=== PATIENT | female | born 1995 | race Caucasian/White ===

== ENCOUNTER 2019-10-24 18:54 | Emergency (ER) | payer MEDICAID, OTHER ==
--- NOTE | 2019-10-24 19:35 | EDM.PDOC ---
ED HPI GENERAL MEDICAL PROBLEM - General Chief Complaint: General Stated Complaint: POSSIBLE ETOPIC Time Seen by Provider: 10/24/19 19:09 Source of Information: Reports: Patient History Limitations: Reports: No Limitations - History of Present Illness INITIAL COMMENTS - FREE TEXT/NARRATIVE: Mrs. Escalera is a very pleasant 24-year-old woman with a past gynecologic history of 2 previous pregnancies, status post 2 sections, who now presents to the ED stating that she has been experiencing cramps felt across her lower abdomen/pelvis on and off for the past 6 days. The discomfort is primarily felt when her bladder is full, although has also been felt when her bladder has not been all that fall. She denies dysuria, urinary frequency, or urgency. The pain remains in her lower abdomen and does not radiate. She took 3 home tests this past , 10/22/2019, with all of them returning positive (she is now ). Her LMP was 09/29/2019. She has not had any vaginal bleeding since the end of her last period. No prior similar symptoms. The patient states that she has not taken any [id number] or home remedies to treat her symptoms. Here in the ED, she is found to be hemodynamically stable, afebrile, saturating 99% on room air. Other than the lower abdominal cramps, the patient denies recent fever, chills, sore throat, ear pain, nasal or sinus congestion, cough, dyspnea, chest pain, palpitations, nausea, vomiting, constipation, diarrhea, urinary symptoms, recent weight gain or weight loss, recent bloody bowel movements or black bowel movements, recent joint aches, headaches, or rashes. The patient is visiting from [place]. - Related Data Allergies Allergy/AdvReac Type Severity Reaction Status Date / Time No Known Allergies Allergy Verified 10/24/19 19:06 Home Meds: Home Meds FLUoxetine [PROzac] 40 mg PO DAILY 10/24/19 [History] Metoprolol Tartrate 25 mg PO BID 10/24/19 [History] Past Medical History : 3 Para: 2 Psychiatric History: Reports: Anxiety, Depression - Past Surgical History HEENT Surgical History: Reports: Myringotomy w Tube(s) (bilateral) GI Surgical History: Reports: Cholecystectomy (Mar 2018) Female Surgical History: Reports: Section (x 2) Social & Family History - Tobacco Use Smoking Status *Q: Never Smoker - Caffeine Use Caffeine Use: Reports: Soda - Alcohol Use Alcohol Use History: Yes Alcohol Use Frequency: Socially - Recreational Drug Use Recreational Drug Use: No - Living Situation & Occupation Living situation: Reports: , with Spouse, with Family (2 kids) Occupation: Unemployed ED ROS GENERAL - Review of Systems Review Of Systems: Comprehensive ROS is negative, except as noted in HPI. ED EXAM, RENAL/ - Physical Exam Exam: See Below Exam Limited By: No Limitations General Appearance: Alert, WD/WN, No Apparent Distress Eye Exam: Bilateral Eye: EOMI, Normal Inspection Ears: Normal External Exam, Hearing Grossly Normal Nose: Normal Inspection Throat/Mouth: Normal Inspection, Normal Lips, Normal Voice, No Airway Compromise Head: Atraumatic, Normocephalic Neck: Normal Inspection, Full Range of Motion Respiratory/Chest: No Respiratory Distress, Lungs Clear, Normal Breath Sounds, No Accessory Muscle Use Cardiovascular: Normal Peripheral Pulses, Regular Rate, Rhythm, No Edema, No Gallop, No JVD, No Murmur, No Rub GI/Abdominal: Normal Bowel Sounds, Soft, No Organomegaly, No Distention, No Abnormal Bruit, No Mass, Tender (Very mild, but reproducible, suprapubically only. No tenderness elsewhere, including either side of the pelvis.) (Female) Exam: Deferred Rectal (Female) Exam: Deferred Back Exam: Normal Inspection, Full Range of Motion. No: CVA Tenderness (L), CVA Tenderness (R) Extremities: Normal Inspection, Normal Range of Motion, No Pedal Edema, Normal Capillary Refill Neurological: Alert, Oriented, Normal Cognition, No Motor/Sensory Deficits Psychiatric: Normal Affect Skin Exam: Warm, Dry, Intact, Normal Color, No Rash Course - Vital Signs Last Recorded V/S: Last Vital Signs Temp 36.3 C 10/24/19 19:02 Pulse 76 10/24/19 19:02 Resp 18 10/24/19 19:02 BP 107/62 10/24/19 19:02 Pulse Ox 99 10/24/19 19:02 - Orders/Labs/Meds Orders: Active Orders 24 hr Category Date Time Status OB Transvaginal [US] Stat Exams 10/24/19 19:30 Taken PATIENT RETYPE [BBK] Routine Lab 10/24/19 20:19 Ordered Labs: Laboratory Tests 10/24/19 10/24/19 10/24/19 Range/Units 19:21 19:43 19:43 HCG, Quant 117.0 mIU/mL Urine Color Light yellow (Yellow) Urine Appearance Clear (Clear) Urine pH 7.0 (5.0-8.0) Ur Specific [place] 1.025 (1.005-1.030) Urine Protein Negative (Negative) Urine Glucose (UA) Negative (Negative) Urine Ketones Negative (Negative) Urine Occult Blood Negative (Negative) Urine Nitrite Negative (Negative) Urine Bilirubin Negative (Negative) Urine Urobilinogen 0.2 (0.2-1.0) Ur Leukocyte Esterase 1+ H (Negative) Urine RBC Not seen (0-5) /hpf Urine WBC 5-10 H (0-5) /hpf Ur Squamous Epith Cells 5-10 H (0-5) /hpf Urine Bacteria Rare (FEW) /hpf Urine Mucus Rare (FEW) /hpf Blood Type O POSITIVE - Re-Assessments/Exams Free Text/Narrative Re-Assessment/Exam: 10/24/19 19:31 As above, the patient has had bilateral lower abdominal/pelvic cramps on and off for the past 6 weeks, with a positive home test 2 days ago. No vaginal bleeding. On examination, she has some reproducible tenderness suprapubically, but not to either side of the pelvis. My suspicion for an ectopic is low, however, to rule it out, I have ordered a work-up that includes a quantitative hCG, an ABO/Rh, a urinalysis, and a transvaginal ultrasound. Because the patient has not experienced any vaginal bleeding, I do not need to examine her cervix. 10/24/19 20:38 The patient's quantitative hCG is slightly elevated at 117. Her blood type is O-Pos. Her urinalysis is remarkable for negative occult blood with no RBCs seen, 1+ leukocyte esterase with 5-10 WBCs, nitrite negative with rare bacteria, and 5- 10 squamous epithelial cells. 10/24/19 20:48 Transvaginal ultrasound is read by Nieves as: 1. of unknown location. Follow-up ultrasound and quantitative hCG levels recommended. 2. Small amount of fluid is seen in the area of the scar, significance of this finding is unclear. 10/24/19 21:[address] Arriola here in the ED at 20:56. Dr. Arriola then briefly spoke with the patient himself. While an ectopic has not been ruled out, at this point, we do not have anything suggest an ectopic . With an hCG of only 117, the patient's is still so early that the mass of the embryo would not likely be large enough to cause pressure and pain. He recommended discharge home at this time, but to have the patient return to the ED if she develops any new or concerning symptoms, such as increased abdominal pain, lightheadedness, or vaginal bleeding. If there are no changes over the weekend, he would like her to follow-up with him Saturday10/26/2019, for a repeat hCG. All of this was discussed with the patient , who is agreeable. Departure - Departure Time of Disposition: 21:09 Disposition: Home, Self-Care 01 Condition: Good Clinical Impression: , Pelvic pain affecting in first trimester, antepartum - Discharge Information *PRESCRIPTION DRUG MONITORING PROGRAM REVIEWED*: Not Applicable *COPY OF PRESCRIPTION DRUG MONITORING REPORT IN PATIENT THIERNO: Not Applicable Referrals: Fabricio Arriola MD [Physician] - PCP,Not In Area [Primary Care Provider] - Forms: ED Department Discharge Additional Instructions: You were seen in the emergency room for 6 days of on and off lower abdominal/ pelvic cramps. Work-up in the ER included a quantitative hCG (regnancy hormone level), blood typing, a urinalysis, and a transvaginal ultrasound. Your quantitative hCG returned very low at 117. This is consistent with a very early . Her blood type is O-positive. You do not have a urinary tract infection. The transvaginal ultrasound did not find the location of the , therefore an ectopic has not been ruled out, however, there was nothing else in your presentation that was concerning for an ectopic . Your case was discussed with the Wares Sorter Dr. Fabricio Arriola. He would like you to call his office at 8:00 10/26/2019, to arrange to be seen by him around 8:30 or 8:45. If, before then, you develop significant symptoms, such as increased abdominal or pelvic pain, vaginal bleeding, or lightheadedness, you are to return to the ER as soon as possible for reevaluation. Sepsis Event Note (ED) - Evaluation Sepsis Screening Result: No Definite Risk - Focused Exam Vital Signs: Vital Signs Temp Pulse Resp BP Pulse Ox 10/24/19 19:02 36.3 C 76 18 107/62 99 - My Orders Last 24 Hours: My Active Orders 10/24/19 19:30 OB Transvaginal [US] Stat 10/24/19 20:19 PATIENT RETYPE [BBK] Routine - Assessment/Plan Last 24 Hours: My Active Orders 10/24/19 19:30 OB Transvaginal [US] Stat 10/24/19 20:19 PATIENT RETYPE [BBK] Routine
--- NOTE | 2019-10-25 10:26 | US ---
First trimester obstetrical ultrasound: Multiple real-time images were obtained transabdominally and transvaginally. Comparison: No previous study is available. Findings: No intrauterine gestational sac is seen. Small amount of fluid is seen in the area of section scar. Endometrial thickness is within normal limits. Small complicated cyst noted within the right ovary measuring 1.9 cm which is believed to be physiologic. Left ovary appears unremarkable. No free fluid is seen. Impression: 1. No intrauterine or adnexal mass is seen. 2. Small amount of fluid within section scar most likely to minimal residual hematoma/seroma. 3. With positive test, current findings could represent miscarriage, too early to visualize as well as less likely nonvisualized ectopic . Note: If patient's clinical status remains stable, follow-up study could be considered in 2 weeks. Diagnostic code #2 I agree with preliminary report issued by [facility] ([facility] preliminary report dictated on 10/24/19, 9:43 PM Central Daylight Time) Study was dictated in MDT
== END 2019-10-24 21:35 | disposition home or self-care (01) ==
LOC: JD.ED 18:54
DX: O99.89 Other specified diseases and conditions complicating pregnancy, childbirth and the puerperium (principal); R10.2 Pelvic and perineal pain; O99.341 Other mental disorders complicating pregnancy, first trimester; F41.9 Anxiety disorder, unspecified; F32.9 Major depressive disorder, single episode, unspecified; Z79.899 Other long term (current) drug therapy
CPT/HCPCS: 36415; 76817; 76817-26; 81001; 84702; 86900; 86901; 99283; 99284-25

== ENCOUNTER 2019-10-28 00:40 | Emergency (ER) | payer MEDICAID, OTHER ==
--- NOTE | 2019-10-28 02:25 | EDM.PDOC ---
ED HPI GENERAL MEDICAL PROBLEM - General Chief Complaint: Abdominal Pain Stated Complaint: ABDOMINAL PAIN 4 WKS PG Time Seen by Provider: 10/28/19 02:20 - History of Present Illness INITIAL COMMENTS - FREE TEXT/NARRATIVE: See dictation Right Lower Abdominal Pain Score (Numeric/FACES): 4 - Related Data Allergies Allergy/AdvReac Type Severity Reaction Status Date / Time No Known Allergies Allergy Verified 10/31/19 20:16 Home Meds: Home Meds FLUoxetine [PROzac] 40 mg PO DAILY 10/24/19 [History] Metoprolol Tartrate 25 mg PO BID 10/24/19 [History] Past Medical History Cardiovascular History: Reports: Hypertension 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: Neurological History: Reports: Migraines Psychiatric History: Reports: Anxiety, Depression - Past Surgical History HEENT Surgical History: Reports: Myringotomy w Tube(s) GI Surgical History: Reports: Cholecystectomy Female Surgical History: Reports: Section Social & Family History - Tobacco Use Smoking Status *Q: Never Smoker - Caffeine Use Caffeine Use: Reports: None - Recreational Drug Use Recreational Drug Use: No - Living Situation & Occupation Living situation: Reports: , with Spouse, with Family (2 kids) Occupation: Unemployed ED ROS GENERAL - Review of Systems Review Of Systems: See Below Reason Not Obtained: See dictation ED EXAM, GI/ABD - Physical Exam Exam: See Below Text/Narrative:: See dictation Course - Vital Signs Last Recorded V/S: Last Vital Signs Temp 36.6 C 10/28/19 05:07 Pulse 76 10/28/19 05:07 Resp 18 10/28/19 05:07 BP 105/70 10/28/19 05:07 Pulse Ox 99 10/28/19 05:07 - Orders/Labs/Meds Labs: Laboratory Tests 10/28/19 10/28/19 10/28/19 Range/Units 01:34 01:34 01:34 WBC 11.24 H (3.98-10.04) K/mm3 RBC 4.43 (3.98-5.22) M/mm3 Hgb 11.8 (11.2-15.7) gm/dl Hct 36.9 (34.1-44.9) % MCV 83.3 (79.4-94.8) fl MCH 26.6 (25.6-32.2) pg MCHC 32.0 L (32.2-35.5) g/dl RDW Std Deviation 46.8 H (36.4-46.3) fL Plt Count 287 (182-369) K/mm3 MPV 10.4 (9.4-12.3) fl Neut % (Auto) 57.4 (34.0-71.1) % Lymph % (Auto) 30.1 (19.3-51.7) % [place] % (Auto) 9.0 (4.7-12.5) % Eos % (Auto) 3.1 (0.7-5.8) Baso % (Auto) 0.2 (0.1-1.2) % Neut # (Auto) 6.46 H (1.56-6.13) K/mm3 Lymph # (Auto) 3.38 (1.18-3.74) K/mm3 [place] # (Auto) 1.01 H (0.24-0.36) K/mm3 Eos # (Auto) 0.35 (0.04-0.36) K/mm3 Baso # (Auto) 0.02 (0.01-0.08) K/mm3 Sodium 138 (136-145) mEq/L Potassium 3.4 L (3.5-5.1) mEq/L Chloride 104 (98-107) mEq/L Carbon Dioxide 27 (21-32) mEq/L Anion Gap 10.4 (5-15) BUN 10 (7-18) mg/dL Creatinine 0.7 (0.55-1.02) mg/dL Est Cr Clr Drug Dosing TNP Estimated GFR (MDRD) > 60 (>60) mL/min BUN/Creatinine Ratio 14.3 (14-18) Glucose 109 H (74-106) mg/dL Calcium 8.9 (8.5-10.1) mg/dL Total Bilirubin 0.3 (0.2-1.0) mg/dL AST 16 (15-37) U/L ALT 12 L (14-59) U/L Alkaline Phosphatase 83 (46-116) U/L Total Protein 7.8 (6.4-8.2) g/dl Albumin 3.7 (3.4-5.0) g/dl Globulin 4.1 gm/dL Albumin/Globulin Ratio 0.9 L (1-2) HCG, Quant 491.0 mIU/mL Urine Color (Yellow) Urine Appearance (Clear) Urine pH (5.0-8.0) Ur Specific [place] (1.005-1.030) Urine Protein (Negative) Urine Glucose (UA) (Negative) Urine Ketones (Negative) Urine Occult Blood (Negative) Urine Nitrite (Negative) Urine Bilirubin (Negative) Urine Urobilinogen (0.2-1.0) Ur Leukocyte Esterase (Negative) Urine RBC (0-5) /hpf Urine WBC (0-5) /hpf Ur Epithelial Cells (0-5) /hpf Urine Bacteria (FEW) /hpf Urine Mucus (FEW) /hpf Blood Type O POSITIVE Gel Antibody Screen Negative 10/28/19 Range/Units 02:14 WBC (3.98-10.04) K/mm3 RBC (3.98-5.22) M/mm3 Hgb (11.2-15.7) gm/dl Hct (34.1-44.9) % MCV (79.4-94.8) fl MCH (25.6-32.2) pg MCHC (32.2-35.5) g/dl RDW Std Deviation (36.4-46.3) fL Plt Count (182-369) K/mm3 MPV (9.4-12.3) fl Neut % (Auto) (34.0-71.1) % Lymph % (Auto) (19.3-51.7) % [place] % (Auto) (4.7-12.5) % Eos % (Auto) (0.7-5.8) Baso % (Auto) (0.1-1.2) % Neut # (Auto) (1.56-6.13) K/mm3 Lymph # (Auto) (1.18-3.74) K/mm3 [place] # (Auto) (0.24-0.36) K/mm3 Eos # (Auto) (0.04-0.36) K/mm3 Baso # (Auto) (0.01-0.08) K/mm3 Sodium (136-145) mEq/L Potassium (3.5-5.1) mEq/L Chloride (98-107) mEq/L Carbon Dioxide (21-32) mEq/L Anion Gap (5-15) BUN (7-18) mg/dL Creatinine (0.55-1.02) mg/dL Est Cr Clr Drug Dosing Estimated GFR (MDRD) (>60) mL/min BUN/Creatinine Ratio (14-18) Glucose (74-106) mg/dL Calcium (8.5-10.1) mg/dL Total Bilirubin (0.2-1.0) mg/dL AST (15-37) U/L ALT (14-59) U/L Alkaline Phosphatase (46-116) U/L Total Protein (6.4-8.2) g/dl Albumin (3.4-5.0) g/dl Globulin gm/dL Albumin/Globulin Ratio (1-2) HCG, Quant mIU/mL Urine Color Yellow (Yellow) Urine Appearance Clear (Clear) Urine pH 7.0 (5.0-8.0) Ur Specific [place] 1.015 (1.005-1.030) Urine Protein Negative (Negative) Urine Glucose (UA) Negative (Negative) Urine Ketones Negative (Negative) Urine Occult Blood Negative (Negative) Urine Nitrite Negative (Negative) Urine Bilirubin Negative (Negative) Urine Urobilinogen 0.2 (0.2-1.0) Ur Leukocyte Esterase 1+ H (Negative) Urine RBC 0-5 (0-5) /hpf Urine WBC 0-5 (0-5) /hpf Ur Epithelial Cells 0-5 (0-5) /hpf Urine Bacteria Rare (FEW) /hpf Urine Mucus Not seen (FEW) /hpf Blood Type Gel Antibody Screen Meds: Medications Discontinued Medications Generic Name Dose Route Start Last Admin Trade Name Justinq PRN Reason Stop Dose Admin Nitrofurantoin Macrocrystals Confirm 10/28/19 05:00 Macrobid Administered 10/28/19 05:01 Dose 100 mg .ROUTE .STK-MED ONE Departure - Departure Time of Disposition: 09:26 Disposition: Home, Self-Care 01 Clinical Impression: Threatened , Urinary tract infection - Discharge Information Referrals: Fabricio Arriola MD [Primary Care Provider] - Forms: ED Department Discharge Additional Instructions: See discharge instructions handwritten as [facility] was down during this patient's stay Sepsis Event Note (ED) - Evaluation Sepsis Screening Result: No Definite Risk
[2019-10-28] MEDS ORDERED: Nitrofurantoin Monohydrate/Macrocrystalline 100 MG Cap ONE (05:00)
--- NOTE | 2019-10-28 07:52 | ER ---
CHIEF COMPLAINT: Pelvic cramping. HISTORY OF PRESENT ILLNESS: The patient is a 3, para 2 female thought to be approximately 4 weeks' gestation. She presents with cramping. She was seen here on Saturday without any spotting or bleeding and had a quantitative hCG of approximately 117. [facility] and her quantitative hCG was approximately 280. She presents today with pelvic cramping mostly on the right side. No vaginal bleeding or spotting. She had an ultrasound done on Saturday that was not consistent with an ectopic, however, there was no gestational sac seen in the uterus, thought to be perhaps too soon to see it. The patient has this persistent intermittent cramping. No specific triggers. She denies any burning or frequency with urination. No constipation or diarrhea. No other abdominal symptoms. REVIEW OF SYSTEMS: GENERAL: Negative for fevers, chills, weakness or fatigue. ENT: Unremarkable. CARDIOVASCULAR: Unremarkable. PULMONARY: Unremarkable. GASTROINTESTINAL: No nausea, vomiting, constipation, or diarrhea. GENITOURINARY: No burning or frequency with urination. PHYSICAL EXAMINATION: VITAL SIGNS: Stable. Afebrile. GENERAL: No acute distress. HEAD: Normocephalic. NECK: Supple. No palpable neck masses. Thyroid is not palpable. No adenopathy. HEART: Regular rate and rhythm. No murmurs. LUNGS: Clear respirations, nonlabored. No wheezes, crackles, or rhonchi. GASTROINTESTINAL: Active bowel sounds. Soft. Nontender. No rigidity, rebound, or guarding. Palpation over the pelvis shows some mild discomfort on the right side. No suprapubic discomfort. No left lower abdomen or pelvic discomfort noted LABORATORY DATA: Quantitative hCG is approximately 490. [employer] is down, do not have exact numbers. Blood type is O positive. Urinalysis: Borderline, 1+ leukocyte esterase, nitrites negative, glucose negative, bilirubin negative, ketones negative, specific gravity 1.015, occult blood negative, pH 7.0, protein negative. Microscopic shows 0 to 5 rbc's, 0 to 5 wbc's, 0 to 5 epithelial cells, and rare bacteria. We have gone ahead and cultured this urine even though it is borderline, and the patient will be started on Macrobid. It is my understanding that the patient is not planning move here, but she will be going back to [place]. FINAL DIAGNOSIS: First trimester cramping, threatened miscarriage. PLAN: The patient should follow up with Dr. Arriola in the [facility] as scheduled. She has a lab work scheduled for this coming Saturday and a followup appointment with Dr. Arriola later that week. The patient was given a prescription for Macrobid 1 p.o. b.i.d. For 7 days. MMODAL /[id number]
== END 2019-10-28 05:07 | disposition home or self-care (01) ==
LOC: JD.ED 00:40
DX: O20.0 Threatened abortion (principal); O23.41 Unspecified infection of urinary tract in pregnancy, first trimester; O16.1 Unspecified maternal hypertension, first trimester; O99.341 Other mental disorders complicating pregnancy, first trimester; F41.9 Anxiety disorder, unspecified; F32.9 Major depressive disorder, single episode, unspecified; Z79.899 Other long term (current) drug therapy; Z3A.01 Less than 8 weeks gestation of pregnancy
CPT/HCPCS: 36415; 80053; 81001; 84702; 85025; 86850; 86900; 86901; 87086; 99284; A9270; 99282

== ENCOUNTER 2019-10-31 20:02 | Emergency (ER) | payer OTHER ==
--- NOTE | 2019-10-31 20:43 | EDM.PDOC ---
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 Last Saturday she was here in the ER due to lower abdominal pain in the right side. She had an ultrasound that suggested she might have a cyst in the right ovary but she was also found to be . The beta-hCG was 117 last Saturday. She went to see Dr. Arriola on Saturday the beta- hCG was 455. The pain in the right lower quadrant has not gotten better and today she went for a walk and had marked stabbing pain that would come and go in the right lower quadrant. It was worse with movement and walking. She has had no bleeding and no cramping. Is any fever. She has been nauseated but no vomiting. She comes back to the ER today due to the worsening right lower quadrant pain. She still has her appendix and she has no history of kidney stones. She is a 3 para 2 aborta 0. 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: Neurological History: Reports: Migraines Psychiatric History: Reports: Anxiety, Depression - Past Surgical History HEENT Surgical History: Reports: Myringotomy w Tube(s) GI Surgical History: Reports: Cholecystectomy Female Surgical History: Reports: Section Social & Family History - Tobacco Use Smoking Status *Q: Never Smoker Second Hand Smoke Exposure: No - Caffeine Use Caffeine Use: Reports: None - Recreational Drug Use Recreational Drug Use: No - Living Situation & Occupation Living situation: Reports: , with Spouse, with Family (2 kids) Occupation: Unemployed ED ROS GENERAL - Review of Systems Review Of Systems: See Below Constitutional: Reports: No Symptoms HEENT: Reports: No Symptoms Respiratory: Reports: No Symptoms Cardiovascular: Reports: No Symptoms GI/Abdominal: Reports: No Symptoms, Abdominal Pain, Nausea. Denies: Constipation, Diarrhea, Vomiting : Denies: Discharge, Dysuria Musculoskeletal: Reports: No Symptoms Skin: Reports: No Symptoms Neurological: Reports: No Symptoms Psychiatric: Reports: No Symptoms Hematologic/Lymphatic: Reports: No Symptoms ED EXAM - Physical Exam Exam: See Below Exam Limited By: No Limitations General Appearance: Alert, WD/WN, No Apparent Distress Eye Exam: Bilateral Eye: Normal Inspection Ears: Normal External Exam Nose: Normal Inspection Throat/Mouth: Normal Lips, Normal Voice, No Airway Compromise Head: Normocephalic Neck: Supple Respiratory/Chest: No Respiratory Distress GI/Abdominal Exam: Normal Bowel Sounds, Soft, Other (She is tender in the right lower quadrant and McBurney's point but there is no peritoneal irritation and no rigidity or guarding or rebound noted. Midline abdomen is nontender and the left abdomen is nontender. She has already had her gallbladder removed. She has no upper abdominal tenderness.) Back Exam: Full Range of Motion Extremities: Normal Inspection, Normal Range of Motion Neurological: Alert, Oriented Psychiatric: Normal Affect, Normal Mood Skin Exam: Warm, Dry Course - Vital Signs Last Recorded V/S: Last Vital Signs Temp 97.9 F 10/31/19 20:13 Pulse 83 10/31/19 20:13 Resp 16 10/31/19 20:13 BP 111/77 10/31/19 20:13 Pulse Ox 100 10/31/19 20:13 - Orders/Labs/Meds Orders: Active Orders 24 hr Category Date Time Status OB Transvaginal [US] Stat Exams 10/31/19 20:36 Taken UA W/MICROSCOPIC [URIN] Stat Lab 10/31/19 20:36 Ordered Labs: Laboratory Tests 10/31/19 10/31/19 Range/Units 20:48 20:48 WBC 8.44 (3.98-10.04) K/mm3 RBC 4.42 (3.98-5.22) M/mm3 Hgb 11.7 (11.2-15.7) gm/dl Hct 36.8 (34.1-44.9) % MCV 83.3 (79.4-94.8) fl MCH 26.5 (25.6-32.2) pg MCHC 31.8 L (32.2-35.5) g/dl RDW Std Deviation 46.4 H (36.4-46.3) fL Plt Count 324 (182-369) K/mm3 MPV 10.5 (9.4-12.3) fl Neut % (Auto) 54.5 (34.0-71.1) % Lymph % (Auto) 32.6 (19.3-51.7) % Wetzel % (Auto) 9.1 (4.7-12.5) % Eos % (Auto) 3.0 (0.7-5.8) Baso % (Auto) 0.4 (0.1-1.2) % Neut # (Auto) 4.61 (1.56-6.13) K/mm3 Lymph # (Auto) 2.75 (1.18-3.74) K/mm3 Wetzel # (Auto) 0.77 H (0.24-0.36) K/mm3 Eos # (Auto) 0.25 (0.04-0.36) K/mm3 Baso # (Auto) 0.03 (0.01-0.08) K/mm3 HCG, Quant 2189.0 mIU/mL - Radiology Interpretation Free Text/Narrative:: Wound showed a right cyst about 18 mm in size questionable whether it is a corpus luteum cyst. They did see a tubular structure is not identified in the right lower quadrant which is compressible and measures about 6 mm or less but they cannot prove its the appendix that they think it is. But no definite appendicitis. Evidence of a yolk sac or pole or activity and no suggestion of an ectopic. - Re-Assessments/Exams Free Text/Narrative Re-Assessment/Exam: 10/31/19 22:36 To the patient regarding her white count being normal and they believe they saw the appendix on ultrasound and it was noninflamed. She does appear to have a cyst on the right ovary a corpus luteum they think. They are not able to see any gestational sac or activity. I also indicated her beta hCG is 2189. She needs to follow-up with Dr. Arriola again on Saturday and let him look at these results to determine what needs to be done. There is no evidence of an ectopic at this time. Departure - Departure Time of Disposition: 22:38 Disposition: Home, Self-Care 01 Condition: Good Clinical Impression: Right ovarian cyst, Right lower quadrant abdominal pain, First trimester - Discharge Information *PRESCRIPTION DRUG MONITORING PROGRAM REVIEWED*: Not Applicable *COPY OF PRESCRIPTION DRUG MONITORING REPORT IN PATIENT THIERNO: Not Applicable Instructions: Abdominal Pain During , [id number], Ovarian Cyst Referrals: Fabricio Arriola MD [Primary Care Provider] - Forms: ED Department Discharge Additional Instructions: Continue with gentle activity, take Tylenol as needed for the pain, call Dr. Arriola on Saturday for him to review the ultrasound and the lab work, follow-up with him as he directs. Return to the ER if needed Sepsis Event Note (ED) - Evaluation Sepsis Screening Result: No Definite Risk - Focused Exam Vital Signs: Vital Signs Temp Pulse Resp BP Pulse Ox 10/31/19 20:13 97.9 F 83 16 111/77 100 - My Orders Last 24 Hours: My Active Orders 10/31/19 20:36 OB Transvaginal [US] Stat UA W/MICROSCOPIC [URIN] Stat - Assessment/Plan Last 24 Hours: My Active Orders 10/31/19 20:36 OB Transvaginal [US] Stat UA W/MICROSCOPIC [URIN] Stat
--- NOTE | 2019-11-01 11:40 | US ---
Pelvic ultrasound: Multiple real-time images were obtained transvaginally. Transabdominal imaging was obtained of the right lower abdomen. Findings: Uterus is anteverted. Small cystic area noted within the endometrial cavity measuring up to 5 mm. 2nd additional cystic area is noted within the endometrium measuring 1 cm. Left ovary appears normal. Right ovary also appears within normal limits. Appendix is not definitely visualized. Impression: 1. 2 cystic areas within the endometrial cavity. Difficult to exclude pseudo-sac or small gestational sac. Please correlate with beta hCGs. If any clinical questions remain and patient remains stable, recommend repeat study in 11 days. 2. No convincing findings of appendicitis are seen. Diagnostic code #3 This report was dictated in MDT I agree with preliminary report from [facility], finalized on 10/31/19, 11:12 PM Central Daylight Time
== END 2019-10-31 22:46 | disposition home or self-care (01) ==
LOC: JD.ED 20:02
DX: O34.81 Maternal care for other abnormalities of pelvic organs, first trimester (principal); N83.201 Unspecified ovarian cyst, right side; O16.1 Unspecified maternal hypertension, first trimester; O99.341 Other mental disorders complicating pregnancy, first trimester; F41.9 Anxiety disorder, unspecified; F32.9 Major depressive disorder, single episode, unspecified; Z90.49 Acquired absence of other specified parts of digestive tract; Z79.899 Other long term (current) drug therapy
CPT/HCPCS: 36415; 76817; 76817-26; 84702; 85025; 99283; 99284-25